=== PATIENT | female | born 1995 | race Caucasian/White ===

== ENCOUNTER 2019-10-07 12:23 | Emergency (ER) | payer BC ==
[~2019-10-07] VITALS: Ht 162.6 cm; Wt 59.0 kg
--- NOTE | 2019-10-07 12:40 | NUR ---
PT PRESENTED TO ER W/ STEADY GAIT IN STABLE CONDITION C/O R ARM PAIN AND LOWER BACK PAIN AFTER FALLING WHILE ROLLER BLADING. PT IS A/OX3 ,SPEAKS IN COMPLETE SENTENCES, NO NEURO DEFICIT NOTED.NO SOB, NO COUGH, LUNG SOUNDS CLEAR. NO CP, HR AND RHYTHM REGULAR. NO N/V/D, NO GI/ ISSUES. PLACED ON MONITOR, V/S STABLE.
[2019-10-07] MEDS ORDERED: BIRTH CONTROL PILL (12:47)
[2019-10-07] MEDS ORDERED: MULT-30 PO (12:47)
--- NOTE | 2019-10-07 12:48 | NUR ---
ER IN ROOM FOR ASSESSMENT.
[2019-10-07] MEDS ORDERED: IBUPROFEN 800 MG TABLET PO ONE (13:00)
[2019-10-07] MEDS ORDERED: IBUPROFEN 800 MG TABLET ONE (13:01)
--- NOTE | 2019-10-07 13:01 | NUR ---
GROWTH MEDIA MIXER MUSHROOM IN ROOM FOR R ARM XRAY.
--- NOTE | 2019-10-07 14:35 | NUR ---
Patient discharged to home in stable condition. Written and verbal after care instructions given. Patient verbalizes understanding of instructions. Stressed follow up or return to ER for worsening s/s.LONG ARM SPLINT APPLIED , TOLD TO FOLLOW UP WITH ORTHO DOCTOR.
[2019-10-07 15:17] VITALS: BP 120/72
== END 2019-10-07 14:40 | disposition home or self-care (01) ==
LOC: ER 12:30
PROC: 2W38X1Z Immobilization of Right Upper Extremity using Splint (ICD-10-PCS; principal; 2019-10-07)
DX: S52.134A Nondisplaced fracture of neck of right radius, initial encounter for closed fracture (principal); V00.118A Other in-line roller-skate accident, initial encounter; Y93.51 Activity, roller skating (inline) and skateboarding; Y92.89 Other specified places as the place of occurrence of the external cause; M25.421 Effusion, right elbow
CPT/HCPCS: 73060; 73080; 73090; 73110; A4663